=== PATIENT | female | born 1990 | race Caucasian/White ===

== ENCOUNTER 2021-10-20 12:45 | Observation (INO) ==
[2021-10-20 14:24] LABS: Basophils # (auto) 0.02 K/uL (0-0.2); Basophils % (auto) 0.2 %; Eosinophils # (auto) 0.06 K/uL (0-0.5); Eosinophils % (auto) 0.5 %; Hematocrit (blood only) 37.2 % (37-47); Hemoglobin 12.9 g/dL (12.0-16.0); Immature Granulocytes # (auto) 0.03 K/uL (0.00-0.02); Immature Granulocytes % (auto) 0.2 %; Lymphocytes % (auto) 14.5 %; Mean Corpuscular Hgb Conc 34.7 g/dL (32-36); Mean Corpuscular Volume 89.4 fL (80-100); Mean Platelet Volume 9.5 fL (7.4-10.4); Monocytes # (auto) 0.59 K/uL (0.11-0.59); Monocytes % (auto) 4.5 %; Neutrophils # (auto) 10.47 K/uL (1.4-6.5); Neutrophils % (auto) 80.1 %; Platelet Count 259 K/uL (130-400); RDW Coefficient of Variation 12.4 % (11.5-14.5); RDW Standard Deviation 39.9 fL (36.4-46.3); Red Blood Count 4.16 M/uL (4.2-5.4); White Blood Count 13.07 K/uL (4.8-10.8)
[2021-10-20 15:42] LABS: Albumin Level 3.5 gm/dl (3.4-5.0); Bilirubin Direct 0.1 mg/dl (0-0.2); Bilirubin,Total 0.6 mg/dl (0.2-1.0); Total Protein 6.8 gm/dl (6.0-8.3)
--- NOTE | 2021-10-20 16:00 | History & Physical Report ---
Date of Service October 20, 2021 Assessment & Plan (1) Elevated BP without diagnosis of hypertension: (2) 36 weeks gestation of : Plan: Todays labs wnl. BPs here are not elevated. Taken multiple times after sitting feet flat on floor x 5min. No sx. Discussed discussion at high risk meeting regarding dx of gest htn. I think may not be the case and asked for documentation of daily bps, same parameters with home bp cuff. Bring to next office visit on tuesday to review. Would rec close f/u and wkly labs. Parameters of concern reviewed. Will let them know outcome of wed discussion and already have a plan for ongoing evaluation. At this time, did not plan date for induction at 37-38wks as ? if gest htn exists. May be possible risk she will need to take on and discussed if no spont labor would she agree to induction by due date or shortly thereafter? and she seems to agree. Will discuss with couple more at tuesday visit as I am seeing her then in office. >40min spent rev of record, face to face and non face to face time, documentation. Admission and Anticipated Discharge Date Admission Date: October 20, 2021 History of Present Illness Chief Complaint: elevated bp in office Primary Care Provider: NO PCP 30yo at 36 3/7wks sent from office with above cc. She was being seen for routine visit after dx made last week of gest hypertension. BPs were elevated today such that MD seeing pt desired eval in L&D to include her wkly labs. She denies sterling, visual change, ruq pain or worsening swelling. She is here with her spouse. 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 They bring up concern that bp only ever elevated in office. When she comes to L&D for evaluation, once previously and again today, no bp elevations noted. Also note home bps(done by spouse with sphygmomanometer) and at work (done by another staff member with digital machine) are always normal, not even borderline, 110s/70s. They ask about possible white coat syndrome with values at office/poss cuff size issue. When questioned they note all bps done with feet flat on floor sitting after 5min. They make it clear that they don't want to question our concerns but as we approach timeframe to consider delivery, want to make sure we know about these values elsewhere. She is just surprised how severely different bps are in office, when compared to values in L&D after a brief period of time. Allergies Allergy/AdvReac Type Severity Reaction Status Date / Time hydrocodone [From Vicodin] Allergy Intermediate Rash Verified 10/20/21 11:48 Home Medications Medication Instructions Recorded Confirmed Type prenat.vits,janay,sah-pogn-ooxqg 1 tab PO DAILY 04/10/21 10/20/21 History loratadine 10 mg tablet (Claritin) 10 mg PO DAILY 06/09/21 10/20/21 History famotidine [Pepcid] PO 09/08/21 10/20/21 History Patient History Medical History No chronic diseases present Surgical History No significant past surgical history Family History (Updated 06/09/21 @ 10:11 by Lexa Osorio MD) Mother Dyslipidemia Rheumatoid arthritis Hypertension Father Dyslipidemia Family/Other , Apparent sudden cardiac of a cousin at age 35. 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 Feels Safe at Home: Yes Safety Concerns: Feels Safe At This Time Review of Systems as per Subjective / HPI Physical Exam Constitutional: WD/WN, vitals as above Neurologic: grossly normal Psychiatric: A+Ox3, euthymic affect Genitourinary: OB Exam Monitor Tracing: + external FHT monitor used, + external uterine monitor used (irreg), + category I (reactive) and + normal FHT variability Results & Data ([place]) Vital Signs (Past 12 Hours) Vital Signs Temp Pulse Resp BP 10/20/21 14:35 98.1 F 20 10/20/21 13:33 74 126/76 10/20/21 13:18 79 126/79 10/20/21 13:03 72 130/78 10/20/21 13:02 97.9 F 20 Coding Level of Care Code 78280 Office/Outpt Visit, Est Diagnoses Elevated BP without diagnosis of hypertension R03.0 36 weeks gestation of Z3A.36 CPT Codes Misx Procedure Codes - 86370 NST: 92117 NST ([id number])
== END 2021-10-20 17:50 | disposition home or self-care (01) ==
LOC: OPB 12:45 → 4S1 12:45

== ENCOUNTER 2021-11-12 11:06 | Inpatient (IN) ==
[2021-11-12] MEDS ORDERED: OXYTOCIN 30 UNITS/500 ML BAG IV PRN ×2 (18:33→18:39)
[2021-11-12] MEDS ORDERED: miSOPROStoL 50 MCG TAB PO ONE (18:39)
--- NOTE | 2021-11-12 18:45 | Labor Progress Brief Note ---
Date of Service November 12, 2021 Subjective Pt arrives for induction of labor, delayed due to high census on L&D for past 24 hours. No OB c/o. No PIH s/sx. Assessment & Plan (1) Gestational hypertension: Plan: Patient skeptical of diagnosis of gHTN and believes she has white coat HTN, thus preferred to decline IOL until 39+ weeks of gestation. We are now at 39w5d and proceeding with IOL. BP 138/72, labs being checked again on admission but at this time she feels well and denies s/sx preeclampsia. Cervix so closed and thick that I feel placing a bianchi may be technically difficult and very uncomfortable. Discussed options of bianchi or cytotec. Patient wants to do cytotec first. Will use 50mcg dose given quiet toco, reassuring tracing and completely unripe cervix. Admission and Anticipated Discharge Date Admission Date: November 12, 2021 Physical Exam Genitourinary: cl/th/hi FHT Cat 1 [place] quiet Results & Data ([facility]) Vital Signs (Past 12 Hours) Vital Signs Temp Pulse Resp BP 11/12/21 18:10 98.4 F 20 11/12/21 18:06 96 H 138/72 Coding Level of Care Code None Diagnoses Gestational hypertension O13.9
[2021-11-12 19:10] LABS: Hematocrit (blood only) 35.5 % (37-47); Hemoglobin 11.6 g/dL (12.0-16.0); Mean Corpuscular Hemoglobin 29.4 pg (25-34); Mean Corpuscular Hgb Conc 32.7 g/dL (32-36); Mean Corpuscular Volume 89.9 fL (80-100); Mean Platelet Volume 9.7 fL (7.4-10.4); Platelet Count 241 K/uL (130-400); RDW Coefficient of Variation 12.6 % (11.5-14.5); Red Blood Count 3.95 M/uL (4.2-5.4); White Blood Count 10.55 K/uL (4.8-10.8)
[2021-11-12 19:31] LABS: Albumin Globulin Ratio 1.1 (0.9-2); Albumin Level 3.2 gm/dl (3.4-5.0); BUN Creatinine Ratio 16.4 (10-20); Bilirubin Direct 0.1 mg/dl (0-0.2); Bilirubin,Total 0.3 mg/dl (0.2-1.0); Calcium 8.2 mg/dl (8.5-10.1); Creatinine Clr Calc Pharmacy 170.7 ml/min; Est GFR (African American) 145.9 ml/min; Est GFR (Non-African American) 125.9 ml/min; Potassium 3.5 mmol/L (3.5-5.1); Total Protein 6.2 gm/dl (6.0-8.3)
[2021-11-13] MEDS ORDERED: miSOPROStoL 25 MCG TAB PO ONE (01:07)
--- NOTE | 2021-11-13 01:09 | Labor Progress Brief Note ---
Date of Service November 13, 2021 Subjective Feeling lightly crampy. Assessment & Plan (1) Gestational hypertension: Plan: Redose cytotec as cervix still unripe; 25mcg as toco active though strength of ctx is mild. Admission and Anticipated Discharge Date Admission Date: November 12, 2021 Physical Exam Genitourinary: ft/50/-3 (has to be on fists for examiner to reach cervix) FHT cat 1 [place] Q2-3 mild Results & Data ([place]) Vital Signs (Past 12 Hours) Vital Signs Temp Pulse Resp BP 11/13/21 00:20 98.2 F 16 11/13/21 00:19 62 109/57 L 11/12/21 22:36 97.7 F 56 L 18 115/57 L 11/12/21 20:17 97.5 F L 85 18 132/80 11/12/21 18:10 98.4 F 20 11/12/21 18:06 96 H 138/72 Coding Level of Care Code None Diagnoses Gestational hypertension O13.9
--- NOTE | 2021-11-13 06:20 | Labor Progress Brief Note ---
Date of Service November 13, 2021 Subjective "Getting pretty uncomfortable" Assessment & Plan (1) Gestational hypertension: Plan: Cervix notably improved, and ROM now occurred. Can wait 30-60min to assess response from ROM, then start pitocin. Admission and Anticipated Discharge Date Admission Date: November 12, 2021 Physical Exam Genitourinary: /-2 SROM occurred for clear fluid during exam FHT Cat 1 [place] Q2-3 Results & Data ([facility]) Vital Signs (Past 12 Hours) Vital Signs Temp Pulse Resp BP 11/13/21 03:19 56 L 11/13/21 03:17 98.1 F 48 L 16 121/65 11/13/21 00:20 98.2 F 16 11/13/21 00:19 62 109/57 L 11/12/21 22:36 97.7 F 56 L 18 115/57 L 11/12/21 20:17 97.5 F L 85 18 132/80 Coding Level of Care Code None Diagnoses Gestational hypertension O13.9
[2021-11-13] MEDS: LACTATED RINGER'S 1,000 ML IV PRN ×3 (07:52→14:42)
[2021-11-13] MEDS ORDERED: ePHEDrine sulfate 50 MG/ML AMP ONE (08:05)
[2021-11-13] MEDS ORDERED: fentaNYL citrate 100 MCG/2 ML VIAL ONE (08:05)
[2021-11-13] MEDS ORDERED: SODIUM CHLORIDE 0.9% INJ 10 ML VIAL ONE (08:05)
[2021-11-13] MEDS ORDERED: BUPIVACAINE 0.25% 30 ML VIAL ONE (08:05)
[2021-11-13] MEDS ORDERED: fentaNYL 2MCG/ML ROPIVACAINE 1.25MG/ML 100 ML BAG EPI ONE ×2 (08:06→18:03)
--- NOTE | 2021-11-13 08:51 | Anesthesiology Consultation ---
Date of Service November 13, 2021 Assessment & Plan (1) Encounter for pre-operative examination: History Height/Weight Height: 5 ft 5 in Weight: 95.254 kg Allergies Allergy/AdvReac Type Severity Reaction Status Date / Time hydrocodone [From Vicodin] Allergy Intermediate Rash Verified 11/12/21 18:36 Medications Home Medications Medication Instructions Recorded Confirmed Last Taken prenat.vits,janay,lnr-souq-vyopa 1 tab PO DAILY 04/10/21 11/12/21 11/12/21 09:00 loratadine 10 mg tablet (Claritin) 10 mg PO DAILY 06/09/21 11/12/21 11/12/21 09:00 famotidine 20 mg tablet (Pepcid) 20 mg PO DAILY 11/12/21 11/12/21 11/12/21 13:00 Active Medications Generic Name Dose Route Start Last Admin Trade Name Freq PRN Reason Stop Dose Admin Lactated Ringer's 1,000 mls @ 125 mls/hr 11/12/21 18:33 11/13/21 09:17 Lr IV 11/14/21 18:32 125 mls/hr .Q8H PRN Administration L&D Protocol Protocol NPO Date Last Intake of Fluids: 11/13/21 Time Last Intake of Fluids: 06:00 Date Last Intake of Solids: 11/13/21 Time Last Intake of Solids: 06:00 Past Medical History Medical History No chronic diseases present induction for gestational hypertension. BPs normal on admission GERD Past Family History Family History Mother Dyslipidemia Rheumatoid arthritis Hypertension Father Dyslipidemia Family/Other , Apparent sudden cardiac of a cousin at age 35. Sudden Grandfather (Maternal) Myocardial infarction Grandfather (Paternal) Myocardial infarction Other Lung cancer Lung disease Ovarian cancer Past Surgical History Surgical History No significant past surgical history Social History Smoking Status: Never smoker Hx Alcohol Use: No Hx Substance Use: No substance use type: does not use Physical Exam Vital Signs Last Vital Signs Temp 36.8 C 11/13/21 07:11 Pulse 81 11/13/21 08:46 Resp 18 11/13/21 07:11 BP 137/72 11/13/21 07:11 Pulse Ox 99 11/13/21 08:46 Testing Laboratory Results 11/12/21 19:00 11/12/21 19:00
[2021-11-13] MEDS ORDERED: fentaNYL 2MCG/ML ROPIVACAINE 1.25MG/ML 100 ML BAG EPI PRN (11:50)
[2021-11-13] MEDS ORDERED: NALOXONE HCL 0.4 MG/1 ML VIAL/CARP IV PRN (11:50)
[2021-11-13] MEDS ORDERED: NALOXONE HCL 1 MG in SODIUM CHLORIDE 0.9% 1000ML 1,000 ML IV PRN (11:50)
[2021-11-13] MEDS ORDERED: ONDANSETRON INJ 2 MG/ML 2 ML VIAL IV PRN (11:50)
[2021-11-13] MEDS ORDERED: diphenhydrAMINE 50 MG/ML VIAL IV PRN (11:50)
[2021-11-13] MEDS ORDERED: ePHEDrine sulfate 50 MG/ML AMP IV PRN (11:50)
--- NOTE | 2021-11-13 16:37 | Labor Progress Brief Note ---
Date of Service November 13, 2021 Subjective Reason For Note: Routine Evaluation Assessment & Plan (1) Gestational hypertension: Plan: Complete without urge to push. Cat 1 tracing. Laboring down (2) Supervision of normal intrauterine in primigravida: Admission and Anticipated Discharge Date Admission Date: November 12, 2021 Physical Exam Genitourinary: Manual OB Exam: + cervical dilation 10 cm, + cervical effacement 100%, + station + 2 and + amniotic fluid clear OB Exam Monitor Tracing: + external FHT monitor used, + external uterine monitor used and + category I Results & Data ([facility]) Vital Signs (Past 12 Hours) Vital Signs Temp Pulse Resp BP Pulse Ox 11/13/21 16:31 74 100 11/13/21 16:30 76 20 115/67 11/13/21 16:26 68 100 11/13/21 16:21 77 98 11/13/21 16:16 72 100 11/13/21 16:15 72 119/73 11/13/21 16:11 81 100 11/13/21 16:06 79 100 11/13/21 16:01 68 127/69 100 11/13/21 16:00 20 11/13/21 15:56 87 100 11/13/21 15:51 90 100 11/13/21 15:46 52 L 100 11/13/21 15:45 56 L 115/55 L 11/13/21 15:41 53 L 99 11/13/21 15:36 53 L 99 11/13/21 15:31 53 L 100 11/13/21 15:30 36.7 C 50 L 20 113/58 L 11/13/21 15:26 69 100 11/13/21 15:21 101 H 99 11/13/21 15:16 103 H 99 11/13/21 15:15 95 H 124/72 11/13/21 15:11 95 H 100 11/13/21 15:06 97 H 100 11/13/21 15:01 91 H 129/75 100 11/13/21 15:00 18 11/13/21 14:56 86 100 11/13/21 14:55 93 H 128/69 11/13/21 14:51 92 H 100 11/13/21 14:46 95 H 99 11/13/21 14:45 82 132/69 11/13/21 14:41 86 100 11/13/21 14:36 87 98 11/13/21 14:31 83 100 11/13/21 14:30 86 121/71 11/13/21 14:26 65 99 11/13/21 14:21 76 99 11/13/21 14:19 37.1 C 18 11/13/21 14:18 99 H 121/75 11/13/21 14:16 88 100 11/13/21 14:11 56 L 100 11/13/21 14:06 52 L 100 11/13/21 14:01 70 91 11/13/21 14:00 62 16 107/54 L 11/13/21 13:56 60 100 11/13/21 13:51 61 100 11/13/21 13:46 57 L 116/56 L 100 11/13/21 13:41 66 100 11/13/21 13:36 63 100 11/13/21 13:31 67 99 11/13/21 13:30 36.9 C 58 L 18 111/57 L 11/13/21 13:26 93 H 98 11/13/21 13:21 90 98 11/13/21 13:16 62 110/61 99 11/13/21 13:11 61 97 11/13/21 13:06 69 98 11/13/21 13:01 60 114/68 99 11/13/21 13:00 16 11/13/21 12:56 62 100 11/13/21 12:51 65 99 11/13/21 12:46 62 99 11/13/21 12:45 68 111/60 11/13/21 12:41 64 98 11/13/21 12:36 66 100 11/13/21 12:31 68 112/68 99 11/13/21 12:30 16 11/13/21 12:26 66 100 11/13/21 12:21 61 100 11/13/21 12:17 80 123/58 L 11/13/21 12:16 86 98 11/13/21 12:11 72 99 11/13/21 12:06 106 H 97 11/13/21 12:01 82 96 11/13/21 12:00 72 18 114/59 L 11/13/21 11:56 56 L 97 11/13/21 11:51 60 97 11/13/21 11:46 56 L 96 11/13/21 11:45 60 117/59 L 11/13/21 11:41 55 L 96 11/13/21 11:36 54 L 97 11/13/21 11:32 76 86 L 11/13/21 11:31 67 97 11/13/21 11:30 55 L 18 114/56 L 11/13/21 11:26 59 L 97 11/13/21 11:25 16 11/13/21 11:24 74 94 11/13/21 11:21 66 98 11/13/21 11:20 37.3 C 16 11/13/21 11:16 55 L 97 11/13/21 11:15 66 111/56 L 11/13/21 11:11 54 L 97 11/13/21 11:06 55 L 96 11/13/21 11:01 66 97 11/13/21 11:00 80 16 112/55 L 11/13/21 10:58 105 H 93 11/13/21 10:56 89 97 11/13/21 10:51 65 98 11/13/21 10:46 63 118/64 97 11/13/21 10:41 65 96 11/13/21 10:36 65 96 11/13/21 10:31 59 L 96 11/13/21 10:30 66 16 115/60 11/13/21 10:26 65 97 11/13/21 10:21 62 98 11/13/21 10:17 77 94 11/13/21 10:16 74 98 11/13/21 10:15 68 16 121/63 11/13/21 10:12 88 93 11/13/21 10:11 74 96 11/13/21 10:06 64 97 11/13/21 10:01 75 98 11/13/21 10:00 59 L 16 120/71 11/13/21 09:56 65 128/66 97 11/13/21 09:53 65 127/62 11/13/21 09:51 66 97 11/13/21 09:50 62 126/62 11/13/21 09:47 69 123/64 11/13/21 09:46 65 96 11/13/21 09:45 16 11/13/21 09:44 62 128/61 11/13/21 09:41 65 123/57 L 97 11/13/21 09:38 55 L 129/61 11/13/21 09:36 67 98 11/13/21 09:35 74 132/60 11/13/21 09:33 74 133/60 11/13/21 09:31 70 98 11/13/21 09:30 36.9 C 16 11/13/21 09:29 65 121/72 11/13/21 09:26 62 129/69 98 11/13/21 09:23 67 131/70 11/13/21 09:21 56 L 98 11/13/21 09:20 55 L 130/69 11/13/21 09:18 67 135/78 11/13/21 09:16 82 97 11/13/21 09:14 84 145/82 H 11/13/21 09:11 82 140/76 97 11/13/21 09:10 85 137/77 11/13/21 09:08 84 137/78 11/13/21 09:06 87 99 11/13/21 09:01 89 97 11/13/21 08:56 91 H 99 11/13/21 08:54 89 90 11/13/21 08:51 86 97 11/13/21 08:46 81 99 11/13/21 08:45 82 92 11/13/21 08:41 63 99 11/13/21 08:36 81 99 11/13/21 08:31 82 99 11/13/21 08:26 64 99 11/13/21 08:21 56 L 98 11/13/21 08:16 81 98 11/13/21 07:11 36.8 C 75 18 137/72 Coding Level of Care Code None Diagnoses Gestational hypertension O13.9 Supervision of normal intrauterine in primigravida Z34.00
[2021-11-13] MEDS ORDERED: CALCIUM CARBONATE 500 MG CHEWABLE TAB PO PRN (17:35)
[2021-11-13] MEDS ORDERED: OXYTOCIN 30 UNITS/500 ML BAG IV PRN (19:44)
[2021-11-13] MEDS ORDERED: bisacodyL 10 MG SUPP PR PRN (19:44)
[2021-11-13] MEDS ORDERED: ACETAMINOPHEN 325 MG TAB PO PRN (19:44)
[2021-11-13] MEDS ORDERED: DIPHTHERIA/TETANUS/PERTUSSIS 0.5 ML SYR/VIAL IM ONE (19:44)
[2021-11-13] MEDS ORDERED: HYDROCORTISONE ACETATE 25 MG SUPP PR PRN (19:44)
[2021-11-13] MEDS ORDERED: BENZOCAINE 20% AER SPR 82.5 GM CAN EXT PRN (19:44)
--- NOTE | 2021-11-13 21:31 | Anesthesia Procedure Note ---
Date of Service November 13, 2021 Anesthesia Post Epidural Note Vital Signs Vital Signs: Temp Pulse Resp BP Pulse Ox 37 C 86 18 132/78 99 11/13/21 19:52 11/13/21 21:23 11/13/21 20:37 11/13/21 21:23 11/13/21 19:15 Notes Mental Status: alert / awake / arousable and participated in evaluation Patient Amnestic to Procedure: No Nausea / Vomiting: adequately controlled Pain: adequately controlled Airway Patency, RR, SpO2: stable & adequate BP & HR: stable & adequate Hydration State: stable & adequate Neuraxial Anesthesia: was administered and sensory block is resolving Anesthetic Complications: no major complications apparent and Pt Satisfied with anesthetic care Epidural: Removed without complications and With tip intact
[2021-11-13] MEDS: IBUPROFEN 600 MG TAB PO PRN (22:12)
[2021-11-14] MEDS: IBUPROFEN 600 MG TAB PO PRN ×5 (03:10→22:03)
[2021-11-14 06:49] LABS: Hematocrit (blood only) 30.9 % (37-47); Hemoglobin 10.4 g/dL (12.0-16.0)
--- NOTE | 2021-11-14 08:25 | Obstetrical Progress Note ---
Date of Service November 14, 2021 Assessment & Plan (1) Encounter for care and examination after delivery: 31yo G1 s/p day 1 s/p . Doing well. Routine care Subjective Ambulation: ambulating normally Voiding: no voiding problems Passing Gas:: Yes Diet Tolerance:: regular diet Lochia:: Moderate Feeding Type:: breast feeding Physical Exam Constitutional WD/WN, vitals as above Respiratory normal respiratory effort; no respiratory distress and no labored breathing Gastrointestinal (Abdomen) Inspection/Auscultation: abdomen normal to inspection; abdomen not distended Percussion/Palpation: abdomen soft; abdomen nontender, no guarding and abdomen not rigid Genitourinary OB Exam Abdomen: + fundal height Fundus: + firm and + relation to umbilicus (Below); not tender or not boggy Results & Data ([facility]) Vital Signs (Past 12 Hours) Vital Signs Temp Pulse Pulse Resp BP BP Pulse Ox 11/14/21 04:45 36.5 C 56 L 18 154/85 H 98 11/14/21 03:40 36.5 C 58 L 16 119/78 97 11/14/21 00:00 36.6 C 72 18 124/78 98 11/13/21 22:11 36.5 C 84 18 149/74 H 95 11/13/21 21:48 107 H 136/77 11/13/21 21:38 93 H 136/74 11/13/21 21:37 36.9 C 20 11/13/21 21:23 86 132/78 11/13/21 21:08 84 128/68 11/13/21 20:53 88 132/71 11/13/21 20:38 96 H 139/83 11/13/21 20:37 18
[2021-11-14] MEDS: DOCUSATE SODIUM 100 MG CAP PO SCH ×3 (09:12→19:59)
[2021-11-14] MEDS: PRENATAL VITAMIN 1 TAB PO SCH (09:12)
[2021-11-14] MEDS: FERROUS SULFATE 325 MG TAB PO SCH (09:16)
--- NOTE | 2021-11-14 12:24 | Delivery Summary ---
DATE OF SERVICE: 11/13/2021 PROCEDURE: Normal spontaneous vaginal delivery with vaginal laceration repair. SURGEON: Sreedhar Fortune MD. PREOPERATIVE DIAGNOSES: 1. Single intrauterine at 40 weeks gestational age. 2. Gestational hypertension versus white coat hypertension. POSTOPERATIVE DIAGNOSES: 1. Single intrauterine at 40 weeks gestational age. 2. Gestational hypertension versus white coat hypertension. 3. Status post procedure. ESTIMATED BLOOD LOSS: 300 mL. DRAINS: None. FLUIDS: Continuous lactated Ringer. URINE OUTPUT: None. COMPLICATIONS: None. FINDINGS: Viable female infant with weight 6 pounds 7 ounces and Apgars of 8 and 9 at one and five m inutes respectively. DESCRIPTION OF PROCEDURE: The patient progressed to 10 cm dilated, 100% effaced, positive 2 station, pushed over intact perineum with epidural anesthesia, delivered a viable female infant with weight a nd Apgars as noted above. Head of the delivered in LAMIN position, restituted to left transver se. No nuchal cord was noted. Body and shoulders quickly followed. was noted to be vigorou s soon after delivery and 1 minute delayed cord clamping was initiated. Cord was then double clamped and cut. remained on maternal abdomen. Cord blood was obtained. Attention was then turned to delivery of the placenta, which was delivered intact, 3-vessel cord, gen tle cord traction. On inspection of the perineum, vagina, cervix, there was noted to be a small left sided vaginal laceration that was fairly superficial, but was bleeding slightly. This was reapproxi mated with 3-0 Vicryl continuous running locked stitch. Needle, sponge, and instrument counts were c orrect at the completion of the case. Both mother and were stable in the immediate post-deli very period. Job ID: [id number]
[2021-11-14] MEDS ORDERED: bisacodyL 5 MG TABEC PO SCH (20:00)
[2021-11-14 21:17] VITALS: TEMP 97.5
[2021-11-15 00:42] VITALS: O2SAT 97
[2021-11-15] MEDS: IBUPROFEN 600 MG TAB PO PRN (05:43)
--- NOTE | 2021-11-15 06:57 | Obstetrical Progress Note ---
Date of Service November 15, 2021 Assessment & Plan (1) Encounter for care and examination after delivery: stable dc home, instructions reviewed. plan 6wk pp check. recent bps normal. rhpos, ri, breast feeding. Day #:: 2 Subjective Ambulation: ambulating normally Voiding: no voiding problems Diet Tolerance:: regular diet Lochia:: Small Feeding Type:: breast feeding denies pain issues, ready to go home. Constitutional: + as per Subjective / HPI Physical Exam Constitutional WD/WN, vitals as above Respiratory normal respiratory effort, lungs clear to auscultation Cardiovascular Rate/Rhythm: regular rate and regular rhythm Gastrointestinal (Abdomen) Inspection/Auscultation: abdomen normal to inspection Percussion/Palpation: abdomen soft fundus firm 1cm below umbilicus, NT Musculoskeletal nt calves no edema Neurologic grossly normal Psychiatric A+Ox3, euthymic affect Results & Data ([facility]) Vital Signs (Past 12 Hours) Vital Signs Temp Pulse Resp BP Pulse Ox 11/15/21 00:20 97.5 F L 65 18 137/73 97 11/14/21 20:00 97.5 F L 66 18 130/75 99
[2021-11-15] MEDS: DOCUSATE SODIUM 100 MG CAP PO SCH (07:41)
[2021-11-15] MEDS: PRENATAL VITAMIN 1 TAB PO SCH (07:41)
[2021-11-15] MEDS: FERROUS SULFATE 325 MG TAB PO SCH (07:41)
[2021-11-15 09:10] VITALS: BP 135/72; PULSE 71
== END 2021-11-15 13:30 | disposition home or self-care (01) | DRG 807 ==
LOC: 4S1 17:51 → 4E2 11-13 22:11